=== PATIENT | female | born 1955 | race African-American/Black ===

== ENCOUNTER 2021-03-09 08:24 | Emergency (ER) | payer MEDICAID ==
[~2021-03-09] VITALS: Ht 162.6 cm; Wt 77.0 kg
[2021-03-09] MEDS ORDERED: NAPR-681 MT (10:51)
[2021-03-09] MEDS ORDERED: ATEN100T MT (10:51)
[2021-03-09 11:14] VITALS: BP 157/84
== END 2021-03-09 11:15 | disposition home or self-care (01) ==
LOC: ER 08:24
DX: M79.604 Pain in right leg (principal); E78.00 Pure hypercholesterolemia, unspecified; I10 Essential (primary) hypertension; Z87.442 Personal history of urinary calculi; Z79.899 Other long term (current) drug therapy
CPT/HCPCS: 93971; 99284